=== PATIENT | female | born 1940 | race Two or more races ===

== ENCOUNTER 2023-10-30 09:50 | Inpatient (IN) | payer MEDICARE, BC ==
[~2023-10-30] VITALS: Ht 165.1 cm; Wt 66.0 kg
[2023-10-30 10:00] VITALS: PULSE 89; RESP 15; O2SAT 93
[2023-10-30] MEDS: SODIUM CHLORIDE 0.9% 1,000 ML IV ONE ×3 (10:08→14:13)
[2023-10-30] MEDS: ONDANSETRON HCL 4 MG/2 ML VIAL IV ONE (10:15)
[2023-10-30 10:45] LABS: Eosinophils # (auto) 0 10 ^3/uL (0-0.8); Lymphocytes # (auto) 0.6 10 ^3/uL (0.4-5.4); Lymphocytes % (auto) 3.5 % (10.0-50.0); Monocytes # (auto) 0.5 10 ^3/uL (0-1.3); Neutrophils # (auto) 15.2 10 ^3/uL (1.6-8.6)
[2023-10-30 10:48] LABS: Basophils # (auto) 0.2 10 ^3/uL (0-0.2); Basophils % (auto) 1.5 % (0.0-2.0); Hematocrit 22.6 % (36.0-46.0); Mean Corpuscular Hemoglobin 22.3 pg (28.0-32.0); Mean Corpuscular Volume 76.7 fL (80.0-100.0); Monocytes % (auto) 3.2 % (0.0-12.0); Neutrophils % (auto) 91.8 % (37.0-80.0); Nucleated Red Blood Cells % 0.5 %; Red Blood Cells 2.95 10^6/uL (4.0-5.20); White Blood Cell 16.6 10^3/uL (4.4-10.8)
[2023-10-30 10:58] LABS: Hemoglobin 6.6 g/dL (12.2-16.2); Red Cell Distribution Width 20.2 % (11.8-14.3)
[2023-10-30 11:12] LABS: Alanine Aminotransferase 10 U/L (7-40); Albumin 3.8 g/dL (3.2-4.8); Alkaline Phosphatase 97 U/L (46-116); Anion Gap 8 (5-15); Aspartate Aminotransferase 10 U/L (13-40); BUN/Creatinine Ratio 18.2 (10.0-20.0); Blood Urea Nitrogen 35 mg/dL (9-23); Calcium 8.4 mg/dL (8.7-10.4); Carbon Dioxide 23 mmol/L (20-30); Chloride 101 mmol/L (98-107); Glucose 121 mg/dL (74-106); Lipase 39 U/L (12-53); Sodium 132 mmol/L (136-145)
[2023-10-30 11:13] LABS: Bilirubin, Total 0.4 mg/dL (0.2-1.0); Total Protein 5.7 g/dL (5.7-8.2)
[2023-10-30 11:29] LABS: Urine Bacteria None Seen /hpf (None Seen)
[2023-10-30 11:38] LABS: Anisocytosis Moderate; Hypochromia Moderate; Platelet Estimate Adequate; Polychromasia Slight
[2023-10-30 12:04] LABS: Urine Blood Negative /uL (Negative); Urine Clarity Clear (Clear); Urine Color Yellow (Yellow); Urine Protein, UAD 1+ (Negative); Urine Specific Gravity 1.021 (1.001-1.035); Urine Urobilinogen Normal (Negative); Urine WBC 1 /hpf (0 - 5)
[2023-10-30 12:18] LABS: Amphetamine Screen, Urine Neg (NEGATIVE); Barbiturate Scree,Urine Neg (NEGATIVE); Benzodiazephine Screen, Urine Neg (NEGATIVE)
[2023-10-30 12:19] LABS: Cannabinoid Screen, Urine Neg (NEGATIVE); Cocaine Screen, Urine Neg (NEGATIVE); Opiate Scree,Urine Neg (NEGATIVE); Phencyclidine Screen, Urine Neg (NEGATIVE)
[2023-10-30 12:27] LABS: % Iron Saturation 2.8 % (15-50)
[2023-10-30 12:53] LABS: Ferritin 27.2 ng/mL (10-291)
[2023-10-30 12:54] LABS: Folate (Folic Acid) 12.62 ng/mL (>5.38)
[2023-10-30] MEDS ORDERED: HYDROmorphone HCL 2 MG/ML VL/or syr IV PRN (14:45)
[2023-10-30] MEDS ORDERED: ACETAMINOPHEN 325 MG TAB PO PRN (14:45)
[2023-10-30] MEDS ORDERED: HYDROcodone-ACET 5/325MG TAB PO PRN (14:45)
[2023-10-30] MEDS: cefTRIAXone 1GM/50ML D5W 50 ML IV SCH (15:18)
[2023-10-30] MEDS: AZITHROMYCIN 500MG/ 250ML 250 ML IV SCH (15:19)
[2023-10-30 16:35] VITALS: BP 63/32; PULSE 83; RESP 14; TEMP 98.8
[2023-10-30 16:50] VITALS: BP 71/42; PULSE 88; RESP 12; TEMP 97.8
[2023-10-30 17:05] VITALS: BP 86/52; PULSE 86; RESP 20; TEMP 98.2
[2023-10-30] MEDS: NOREPINEPHRINE 8 MG/250ML KIT 250 ML IV SCH (17:42)
[2023-10-30 18:50] VITALS: BP 132/63; PULSE 101; RESP 22; TEMP 98.6
[2023-10-30 19:30] VITALS: PULSE 105; RESP 21; O2SAT 99
[2023-10-30] MEDS: SODIUM CHLOR 0.9% PF (SALINE LOCK) 10ML VIAL/SYR IV SCH (22:01)
[2023-10-30 23:51] LABS: Hematocrit 26.9 % (36.0-46.0)
[2023-10-31 00:02] LABS: Creatinine, Urine 110.81 mg/dL (30.0-125.0)
[2023-10-31 05:00] LABS: Anion Gap 6 (5-15); Carbon Dioxide 21 mmol/L (20-30); Chloride 108 mmol/L (98-107); Potassium 4.8 mmol/L (3.5-5.1); Sodium 135 mmol/L (136-145)
[2023-10-31 05:01] LABS: Calcium 8.2 mg/dL (8.7-10.4)
[2023-10-31 05:06] LABS: BUN/Creatinine Ratio 18.6 (10.0-20.0); Blood Urea Nitrogen 31 mg/dL (9-23); Glucose 112 mg/dL (74-106)
[2023-10-31 09:00] VITALS: PULSE 105; RESP 17; O2SAT 96
[2023-10-31] MEDS: SODIUM CHLORIDE 0.9% 1,000 ML IV SCH (09:38)
[2023-10-31 10:30] LABS: Basophils # (auto) 0 10 ^3/uL (0-0.2); Basophils % (auto) 0.2 % (0.0-2.0); Eosinophils # (auto) 0 10 ^3/uL (0-0.8); Eosinophils % (auto) 0.1 % (0.0-7.0); Hematocrit 24.8 % (36.0-46.0); Hemoglobin 7.4 g/dL (12.2-16.2); Monocytes # (auto) 0.9 10 ^3/uL (0-1.3); Nucleated Red Blood Cells % 0.4 %
[2023-10-31 10:31] LABS: Lymphocytes # (auto) 1.2 10 ^3/uL (0.4-5.4); Lymphocytes % (auto) 6.3 % (10.0-50.0); Mean Corpuscular Hemoglobin 23.6 pg (28.0-32.0); Mean Corpuscular Hgb Conc. 29.7 g/dL (32.0-36.0); Mean Corpuscular Volume 79.5 fL (80.0-100.0); Monocytes % (auto) 4.9 % (0.0-12.0); Neutrophils # (auto) 17.1 10 ^3/uL (1.6-8.6); Neutrophils % (auto) 88.5 % (37.0-80.0); Red Blood Cells 3.12 10^6/uL (4.0-5.20); White Blood Cell 19.3 10^3/uL (4.4-10.8)
[2023-10-31 10:44] LABS: Albumin 3.3 g/dL (3.2-4.8); Alkaline Phosphatase 89 U/L (46-116); Anion Gap 6 (5-15); Aspartate Aminotransferase 9 U/L (13-40); BUN/Creatinine Ratio 27.7 (10.0-20.0); Bilirubin, Total 0.4 mg/dL (0.2-1.0); Calcium 8.2 mg/dL (8.7-10.4); Carbon Dioxide 23 mmol/L (20-30); Chloride 108 mmol/L (98-107); Glucose 110 mg/dL (74-106); Sodium 137 mmol/L (136-145); Total Protein 4.5 g/dL (5.7-8.2)
[2023-10-31 10:45] LABS: INR 1.25 (0.9-1.15)
[2023-10-31 10:50] LABS: Red Cell Distribution Width 20.9 % (11.8-14.3)
[2023-10-31 11:06] LABS: Alanine Aminotransferase < 9 U/L (7-40); Blood Urea Nitrogen 44 mg/dL (9-23)
[2023-10-31] MEDS: IRON SUCROSE COMPLEX 100 ML IV SCH (12:56)
[2023-10-31] MEDS: PIPERACILLIN-TAZOB 3.375GM 100 ML IV ONE (13:30)
[2023-10-31] MEDS: PANTOPRAZOLE 40 MG/10 ML VIAL INJ IV ONE (13:30)
[2023-10-31] MEDS ORDERED: VANCOMYCIN PER PHARMACY 0 MG IV SCH (13:30)
[2023-10-31] MEDS: VANCOMYCIN 1GM/200ML 200 ML IV ONE (15:00)
[2023-10-31 15:49] VITALS: BP 114/52; PULSE 112; RESP 18; O2SAT 96
[2023-10-31 18:22] VITALS: PULSE 106; RESP 20; O2SAT 100
[2023-10-31] MEDS: IPRATROPIUM BROM 0.5 MG/2.5ML INH SOL NEB SCH (18:26)
[2023-10-31] MEDS: LEVALBUTEROL HCL 1.25 MG/3 ML NEB NEB SCH (18:26)
[2023-10-31 18:32] VITALS: PULSE 110; RESP 20; O2SAT 100
[2023-10-31] MEDS: PIPERACILLIN-TAZOB 3.375GM 100 ML IV SCH (22:20)
[2023-11-01] VITALS (85 sets, daily range): BP systolic 84–132; BP diastolic 28–60; PULSE 100–144; RESP 12–37; TEMP 98.2–98.7; O2SAT 81–100
[2023-11-01] MEDS: DIGOXIN (250MCG/ML) 2 ML AMPULE IV ONE ×2 (04:53→06:27)
[2023-11-01 05:12] LABS: Basophils # (auto) 0.1 10 ^3/uL (0-0.2); Basophils % (auto) 0.4 % (0.0-2.0); Eosinophils # (auto) 0 10 ^3/uL (0-0.8); Lymphocytes # (auto) 0.8 10 ^3/uL (0.4-5.4); Mean Corpuscular Hemoglobin 23.7 pg (28.0-32.0); Mean Corpuscular Hgb Conc. 29.2 g/dL (32.0-36.0); Monocytes # (auto) 0.8 10 ^3/uL (0-1.3); Neutrophils % (auto) 91.6 % (37.0-80.0)
[2023-11-01 05:16] LABS: Hematocrit 28.6 % (36.0-46.0); Hemoglobin 8.3 g/dL (12.2-16.2); Mean Corpuscular Volume 81.1 fL (80.0-100.0); Neutrophils # (auto) 18.6 10 ^3/uL (1.6-8.6); Nucleated Red Blood Cells % 0.4 %; Red Blood Cells 3.52 10^6/uL (4.0-5.20); White Blood Cell 20.3 10^3/uL (4.4-10.8)
[2023-11-01 05:23] LABS: Red Cell Distribution Width 20.7 % (11.8-14.3)
[2023-11-01 05:30] LABS: Albumin 3.5 g/dL (3.2-4.8); Alkaline Phosphatase 93 U/L (46-116); Anion Gap 10 (5-15); Aspartate Aminotransferase 14 U/L (13-40); Calcium 8.8 mg/dL (8.7-10.4); Carbon Dioxide 20 mmol/L (20-30); Chloride 109 mmol/L (98-107); Glucose 108 mg/dL (74-106); Potassium 4.6 mmol/L (3.5-5.1); Sodium 139 mmol/L (136-145)
[2023-11-01 05:31] LABS: Alanine Aminotransferase < 9 U/L (7-40); Bilirubin, Total 0.3 mg/dL (0.2-1.0); Blood Urea Nitrogen 28 mg/dL (9-23); Total Protein 5.2 g/dL (5.7-8.2)
[2023-11-01] MEDS: AMIODARONE BOLUS KIT 100 ML IV ONE (09:25)
[2023-11-01] MEDS: AMIODARONE 450mg/250ml AE 250 ML IV SCH ×2 (09:34→14:30)
[2023-11-01] MEDS: LIDOCAINE 1% (LOCAL ANESTH.) PF 5ml SDV ID ONE (11:00)
[2023-11-01] MEDS: PANTOPRAZOLE 40 MG/10 ML VIAL INJ IV SCH (12:14)
[2023-11-01] MEDS: VANCOMYCIN 1GM/200ML 200 ML IV ONE (12:15)
[2023-11-01] MEDS ORDERED: LIDO1PAD55 TOP (14:20)
[2023-11-01] MEDS ORDERED: GABA-1250 PO (14:20)
[2023-11-01] MEDS ORDERED: MET25T PO (14:20)
[2023-11-01] MEDS ORDERED: POTA-228 PO (14:20)
[2023-11-01] MEDS ORDERED: METH-1181 PO (14:20)
[2023-11-01] MEDS ORDERED: ALLO100T PO (14:20)
[2023-11-01] MEDS ORDERED: FURO40TA4 PO (14:20)
[2023-11-01] MEDS ORDERED: LISI20TA56 PO (14:20)
[2023-11-01] MEDS ORDERED: HYDR-4902 PO (14:20)
[2023-11-01] MEDS ORDERED: ATOR20TA PO (14:20)
[2023-11-01] MEDS ORDERED: NORT25CA PO (14:20)
[2023-11-01] MEDS ORDERED: RIV15T PO (14:20)
[2023-11-01] MEDS: methylPREDNISolone SOD SUCC 40 MG/ML VL IV ONE (15:45)
[2023-11-01] MEDS: SODIUM FERR GLUC 62.5MG/5ML 110 ML IV SCH (16:31)
[2023-11-01 20:18] LABS: COVID19 ANTIGEN SOFIA FIA NEGATIVE (NEGATIVE); Rapid Influenza A Negative (Negative); Rapid Influenza B Negative (Negative)
[2023-11-01] MEDS: methylPREDNISolone SOD SUCC 40 MG/ML VL IV SCH (21:48)
[2023-11-01] MEDS: SODIUM CHLOR 0.9% PF (SALINE LOCK) 10ML VIAL/SYR IV SCH (21:49)
[2023-11-01] MEDS: AMIODARONE HCL 75 MG in D5W 5% 100 ML IV ONE (22:53)
[2023-11-02] VITALS (68 sets, daily range): BP systolic 55–124; BP diastolic 30–77; PULSE 99–123; RESP 10–36; TEMP 97.2–98.9; O2SAT 63–100
[2023-11-02 04:30] LABS: Hematocrit 23.8 % (36.0-46.0); Hemoglobin 7.1 g/dL (12.2-16.2); Mean Corpuscular Hemoglobin 24.4 pg (28.0-32.0); Mean Corpuscular Hgb Conc. 29.8 g/dL (32.0-36.0); Mean Corpuscular Volume 81.9 fL (80.0-100.0); White Blood Cell 14.3 10^3/uL (4.4-10.8)
[2023-11-02 04:33] LABS: Basophils % (manual) 0 (0.0-2.0); Blast Cells 0; Eosinophils % (manual) 0 (0-7); Metamyelocytes % 0; Monocytes % (manual) 0 (0-12); Myelocytes % 0; Promyelocytes % 0; Reactive Lymphocytes 0
[2023-11-02 04:40] LABS: Albumin 3.3 g/dL (3.2-4.8); Alkaline Phosphatase 81 U/L (46-116); Anion Gap 11 (5-15); Aspartate Aminotransferase 11 U/L (13-40); BUN/Creatinine Ratio 21.2 (10.0-20.0); Blood Urea Nitrogen 31 mg/dL (9-23); Calcium 8.7 mg/dL (8.7-10.4); Carbon Dioxide 20 mmol/L (20-30); Chloride 110 mmol/L (98-107); Glucose 183 mg/dL (74-106); Potassium 4.4 mmol/L (3.5-5.1); Sodium 141 mmol/L (136-145)
[2023-11-02 04:41] LABS: Bilirubin, Total 0.3 mg/dL (0.2-1.0); Total Protein 4.9 g/dL (5.7-8.2)
[2023-11-02 04:52] LABS: Alanine Aminotransferase < 9 U/L (7-40)
[2023-11-02 07:43] LABS: Band Neutrophils % (manual) 2; Lymphocytes % (manual) 2 (10.0-50.0)
[2023-11-02 07:44] LABS: Platelet Estimate Adequate
[2023-11-02 09:23] LABS: Base Excess -6.3 mmol/L (-2.0-2.0)
[2023-11-02] MEDS: FUROSEMIDE 20 MG/2 ML VIAL IV ONE (17:46)
[2023-11-02] MEDS: VANCOMYCIN 500 MG in D5W 5% 100 ML IV ONE (18:55)
[2023-11-02] MEDS: ONDANSETRON HCL 4 MG/2 ML VIAL IV PRN (19:32)
[2023-11-03] VITALS (65 sets, daily range): BP systolic 72–150; BP diastolic 28–80; PULSE 62–127; RESP 12–28; TEMP 96.3–97.7; O2SAT 65–100
[2023-11-03] MEDS: MORPHINE SULFATE INJ 2 MG/ml SYRG IV PRN ×3 (02:21→19:53)
[2023-11-03 04:42] LABS: Urine Blood 3+ /uL (Negative); Urine Clarity Turbid (Clear); Urine Protein, UAD 2+ (Negative); Urine Specific Gravity 1.013 (1.001-1.035); Urine Urobilinogen Normal (Negative); Urine pH 5.5 (5.0-9.0)
[2023-11-03 04:46] LABS: Urine Color STRAW (Yellow)
[2023-11-03 06:13] LABS: Anion Gap 10 (5-15); Carbon Dioxide 19 mmol/L (20-30); Chloride 109 mmol/L (98-107); Potassium 4.7 mmol/L (3.5-5.1); Sodium 138 mmol/L (136-145)
[2023-11-03 06:14] LABS: Calcium 9.8 mg/dL (8.7-10.4)
[2023-11-03 06:15] LABS: Hemoglobin 9.4 g/dL (12.2-16.2); Mean Corpuscular Hemoglobin 24.8 pg (28.0-32.0)
[2023-11-03 06:17] LABS: Hematocrit 31.8 % (36.0-46.0); Mean Corpuscular Hgb Conc. 29.7 g/dL (32.0-36.0); Mean Corpuscular Volume 83.6 fL (80.0-100.0); White Blood Cell 26.9 10^3/uL (4.4-10.8)
[2023-11-03 06:19] LABS: BUN/Creatinine Ratio 14.3 (10.0-20.0); Blood Urea Nitrogen 24 mg/dL (9-23); Glucose 262 mg/dL (74-106)
[2023-11-03 07:01] LABS: Red Cell Distribution Width 21.3 % (11.8-14.3)
[2023-11-03 07:03] LABS: Band Neutrophils % (manual) 0; Basophils % (manual) 0 (0.0-2.0); Blast Cells 0; Eosinophils % (manual) 0 (0-7); Metamyelocytes % 0; Myelocytes % 0; Promyelocytes % 0; Reactive Lymphocytes 0
[2023-11-03 09:44] LABS: Lymphocytes % (manual) 15 (10.0-50.0); Monocytes % (manual) 2 (0-12); Platelet Estimate Adequate
[2023-11-03] MEDS: LORazepam 2MG/ML-1ML VIAL IV ONE (09:50)
[2023-11-03] MEDS: SODIUM BICARB 50mEq/50ml Vial 150 ML in D5W 5% 1,000 ML IV SCH (11:09)
[2023-11-04] VITALS (8 sets, daily range): BP systolic 88–94; BP diastolic 29–43; PULSE 88–120; RESP 12–16; TEMP 97.3–97.6; O2SAT 88–99
[2023-11-05 01:00] VITALS: BP 82/39; PULSE 95; RESP 20; O2SAT 98
[2023-11-05 05:00] VITALS: BP 74/35; PULSE 124; RESP 21; O2SAT 98
[2023-11-05 08:00] VITALS: PULSE 120; RESP 12; O2SAT 88
[2023-11-05] MEDS: LORazepam 2MG/ML-1ML VIAL IV PRN (08:32)
[2023-11-05 09:00] VITALS: BP 67/30; PULSE 125; RESP 14; TEMP 99.2; O2SAT 87
[2023-11-05 10:00] VITALS: O2SAT 82
[2023-11-05 13:00] VITALS: BP 59/32; PULSE 123; RESP 12; TEMP 100.4; O2SAT 85
== END 2023-11-05 23:52 | DRG 871 ==
LOC: EDBD 09:50 → ER 09:50 → TELE 14:43 → ICU WEST 11-01 05:27 → TELE-CENTR 11-03 15:32 → CENTRAL 11-03 15:44
PROVIDERS: ADMIT Internal Medicine; ATTEND Internal Medicine
PROC: 05HY33Z Insertion of Infusion Device into Upper Vein, Percutaneous Approach (ICD-10-PCS; 2023-11-01)
PROC: B54MZZA Ultrasonography of Right Upper Extremity Veins, Guidance (ICD-10-PCS; 2023-11-01)
PROC: 05HA33Z Insertion of Infusion Device into Left Brachial Vein, Percutaneous Approach (ICD-10-PCS; 2023-11-02)
PROC: B54NZZA Ultrasonography of Left Upper Extremity Veins, Guidance (ICD-10-PCS; 2023-11-02)
PROC: 30233N1 Transfusion of Nonautologous Red Blood Cells into Peripheral Vein, Percutaneous Approach (ICD-10-PCS; principal; 2023-11-03)
DX: A41.9 Sepsis, unspecified organism (principal); G93.41 Metabolic encephalopathy; J18.9 Pneumonia, unspecified organism; R65.21 Severe sepsis with septic shock; N17.0 Acute kidney failure with tubular necrosis; J96.01 Acute respiratory failure with hypoxia; I13.0 Hypertensive heart and chronic kidney disease with heart failure and stage 1 through stage 4 chronic kidney disease, or unspecified chronic kidney disease; J44.1 Chronic obstructive pulmonary disease with (acute) exacerbation; J44.0 Chronic obstructive pulmonary disease with (acute) lower respiratory infection; I50.32 Chronic diastolic (congestive) heart failure; N18.9 Chronic kidney disease, unspecified; D50.9 Iron deficiency anemia, unspecified; E27.8 Other specified disorders of adrenal gland; Z20.822 Contact with and (suspected) exposure to COVID-19; K43.9 Ventral hernia without obstruction or gangrene; E86.0 Dehydration; E78.5 Hyperlipidemia, unspecified; F17.210 Nicotine dependence, cigarettes, uncomplicated; N28.1 Cyst of kidney, acquired; Z66 Do not resuscitate; I48.91 Unspecified atrial fibrillation; D35.00 Benign neoplasm of unspecified adrenal gland; Z91.013 Allergy to seafood; Z88.2 Allergy status to sulfonamides; Z79.899 Other long term (current) drug therapy; Z86.73 Personal history of transient ischemic attack (TIA), and cerebral infarction without residual deficits
CPT/HCPCS: 31720; 36415; 36569; 36600; 70450; 71045; 71250; 74176; 76775; 80048; 80053; 80202; 80307; 80320; 81001; 81003; 82378; 82570; 82607; 82728; 82746; 82805; 82962; 83540; 83550; 83605; 83615; 83690; 83735; 83880; 84300; 84443; 84484; 85007; 85014; 85018; 85025; 85027; 85045; 85610; 85730; 86141; 86850; 86900; 86901; 86920; 87040; 87081; 87426; 87804; 92610; 93005; 93306; 94640; 94667; 94668; 96360; 96361; G0378; J1756; J2405; J2470; J2543; J7060